=== PATIENT | female | born 1995 | race Caucasian/White ===

== ENCOUNTER 2018-07-26 11:26 | Emergency (ER) | payer SELFPAY ==
[2018-07-26 11:36] VITALS: BP 127/65
[2018-07-26] MEDS ORDERED: PHENAZOPYRIDINE HCL 200 MG TABLET PO ONE (11:50)
[2018-07-26 12:01] LABS: APPEARANCE,URINE CLOUDY; BILIRUBIN,URINE NEGATIVE (NEGATIVE); COLOR,URINE YELLOW; GLUCOSE, URINE NEGATIVE (NEGATIVE); KETONES,URINE NEGATIVE (NEGATIVE); LEUKOCYTE ESTERASE,URINE LARGE (NEGATIVE); NITRITE,URINE POSITIVE (NEGATIVE); PROTEIN,URINE 100 mg/dL (NEGATIVE); URINE SPECIFIC GRAVITY 1.019; UROBILINOGEN,URINE NEGATIVE mg/dL (<2.0)
--- NOTE | 2018-07-26 12:07 | ER Document Report ---
HPI - HPI Patient complains to provider of: urinary frequency Onset: Other - 5 days Onset/Duration: Persistent Pain Level: 3 - urgency Context: Patient presents emergency department with complaints of possible UTI. Patient reports that on Tuesday while working at [employer] she started to experience urinary frequency. She reports it kind of tingles when she goes. She denies vaginal discharge. She also reports that she is having some very low back pain. Denies fever vomiting diarrhea. Sexually active taking the control pill. Also thinks she saw some blood in her urine. Reports she took Azo and cranberry pills and is still not feeling relief. Associated Symptoms: None Exacerbated by: Other - voiding Relieved by: Denies Similar symptoms previously: No Recently seen / treated by doctor: No - URINARY Urinary: REPORTS: Dysuria, Urgency, Frequency Past Medical History - General Information source: Patient Last Menstrual Period: 2 .5 weeks ago - Social History Smoking Status: Never Smoker Cigarette use (# per day): No Frequency of alcohol use: None Drug Abuse: None Occupation: [employer] Family History: None Patient has suicidal ideation: No Patient has homicidal ideation: No - Medical History Medical History: Negative Renal/ Medical History: Denies: Hx Peritoneal Dialysis Past Surgical History: Reports: Hx Orthopedic Surgery - knees Vertical Provider Document - CONSTITUTIONAL Agree With Documented VS: Yes Exam Limitations: No Limitations General Appearance: WD/WN, No Apparent Distress - nontoxic looking, happy smiling - INFECTION CONTROL TRAVEL OUTSIDE OF THE [place] IN LAST 30 DAYS: No - HEENT HEENT: Atraumatic, Normocephalic. negative: Conjuctival Injection - NECK Neck: Normal Inspection, Supple. negative: Lymphadenopathy-Left, Lymphadenopathy-Right - RESPIRATORY Respiratory: Breath Sounds Normal, No Respiratory Distress - CARDIOVASCULAR Cardiovascular: Regular Rate - GI/ABDOMEN Gastrointestinal: Abdomen Soft, Abdomen Non-Tender - BACK Back: Normal Inspection - Patient reports very low back pain, distal movement sensation no weakness no obvious deformity. negative: CVA Tenderness-Right, CVA Tenderness-Left - MUSCULOSKELETAL/EXTREMETIES Musculoskeletal/Extremeties: HARRIETT REY - NEURO Level of Consciousness: Awake, Alert, Appropriate Motor/Sensory: No Motor Deficit - DERM Integumentary: Warm, Dry Adult Front & Back Diagram: 1 - reports low back ache Course - Re-evaluation Re-evalutation: 07/26/18 12:05 She offered and accepted Pyridium. Does not wear contacts and is not taking anything such as Azo cranberry pills this morning. Patient instructed on the side effects of Pyridium. - Vital Signs Vital signs: Temp Pulse Resp BP Pulse Ox 97.8 F 73 18 127/65 H 97 07/26/18 11:35 07/26/18 11:35 07/26/18 11:35 07/26/18 11:35 07/26/18 11:35 Discharge - Discharge Clinical Impression: Dysuria Condition: Stable Disposition: HOME, SELF-CARE Instructions: Nitrofurantoin ([facility]), Urinary Anesthetic Agent ([facility]), Urinary Tract Infection ([facility]) Additional Instructions: *You have been evaluated for pain while voiding, UTI *Take medication as prescribed *Push fluids *A urine culture is pending. If you need further antibiotics you will be contacted. *Follow up with your primary care provider within one week for recheck *Plan urine recheck in one week *Return to ED for worsening condition, changes, needs Prescriptions: Nitrofurantoin/Nitrofuran Mac [Macrobid 100 mg Capsule] 100 mg PO BID #20 capsule Phenazopyridine HCl [Pyridium 200 mg Tablet] 200 mg PO TID #15 tablet Forms: Elevated Blood Pressure Referrals: JOHN GARCIA MD [[facility]] - Follow up in 3-5 days
== END 2018-07-26 12:25 | disposition home or self-care (01) ==
LOC: ER 11:26
DX: R30.0 Dysuria (principal); R35.0 Frequency of micturition; Z79.3 Long term (current) use of hormonal contraceptives
CPT/HCPCS: 99283; 87086; 81025; 87088; 81001; 87186; J3490